=== PATIENT | female | born 1965 | race Two or more races ===

== ENCOUNTER → 2018-08-11 | Outpatient (CLI) | payer OTHER | END | disposition home or self-care (01) | LOC: SONOGRAMA 09:15 | DX: R10.2 Pelvic and perineal pain (principal); N95.0 Postmenopausal bleeding ==

== ENCOUNTER 2019-08-06 15:02 | Outpatient (CLI) | payer OTHER | END 2019-08-06 15:09 | disposition home or self-care (01) | LOC: SONOGRAMA 15:02 | DX: R10.2 Pelvic and perineal pain (principal); N95.0 Postmenopausal bleeding ==

== ENCOUNTER 2021-09-01 16:35 | Emergency (ER) | payer OTHER ==
[~2021-09-01] VITALS: Ht 157.5 cm; Wt 85.7 kg
[2021-09-01] MEDS ORDERED: SYNTHROID150 MCG (16:46)
[2021-09-01] MEDS ORDERED: METFORMIN HCL1000 MG (16:47)
[2021-09-01] MEDS ORDERED: METFORMIN HCL500 M3 (16:48)
[2021-09-01] MEDS ORDERED: ATORVASTATIN CA40 MG (16:48)
== END 2021-09-01 20:00 | disposition home or self-care (01) ==
LOC: ER 16:35
DX: S92.192A Other fracture of left talus, initial encounter for closed fracture (principal); W22.8XXA Striking against or struck by other objects, initial encounter; Y93.89 Activity, other specified; Y92.89 Other specified places as the place of occurrence of the external cause; Y99.8 Other external cause status